=== PATIENT | female | born 1985 | race American Indian/Alaskan Native ===

== ENCOUNTER 2020-05-22 16:19 | Outpatient (CLI) | payer MEDICAID ==
[2020-05-22 17:40] VITALS: BP 105/63
[2020-05-22] MEDS ORDERED: LACTATED RINGERS 1,000 ML IV ONE (17:51)
[2020-05-22 18:09] LABS: Bacteria,Urine 1+ /HPF (Negative); Bilirubin,Urine NEG (Negative); Blood,Urine NEG (Negative); Color,Urine Straw (Yellow); Mucus,Urine FEW /HPF; Protein,Urine <15 mg/dL mg/dL (Negative); Urobilinogen,Urine < 2.0 mg/dL (<2.0); WBC,Urine < 1.0 /HPF (0.0-6.0)
== END 2020-05-22 19:43 | disposition home or self-care (01) ==
LOC: TRG 16:19 → EDBD 16:19 → APU 16:26 → TRG 19:43
PROVIDERS: ATTEND Obstetrics & Gynecology
DX: O09.892 Supervision of other high risk pregnancies, second trimester (principal); Z3A.24 24 weeks gestation of pregnancy
CPT/HCPCS: 59025; 81001

== ENCOUNTER 2020-08-28 13:39 | Outpatient (CLI) | payer MEDICAID ==
[2020-08-28 14:35] VITALS: BP 108/69
== END 2020-08-28 17:55 | disposition home or self-care (01) ==
LOC: EDBD → TRG 13:39 → APU 13:50 → TRG 17:55
PROVIDERS: ATTEND Obstetrics & Gynecology
DX: O09.893 Supervision of other high risk pregnancies, third trimester (principal); Z3A.38 38 weeks gestation of pregnancy
CPT/HCPCS: 36415; 59025; 84112; Q0177

== ENCOUNTER 2020-09-04 20:45 | Inpatient (IN) | payer MEDICAID ==
[2020-09-04] MEDS ORDERED: METHYLERGONOVINE MALEATE 0.2 MG/ML VIAL IM PRN (21:37)
[2020-09-04] MEDS ORDERED: TERBUTALINE 1 MG/1 ML INJ SUB-Q PRN (21:37)
[2020-09-04] MEDS ORDERED: MINERAL OIL 30 ML ORAL LIQD PO PRN (21:37)
[2020-09-04] MEDS ORDERED: ePHEDrine SULFATE 50 MG/1 ML INJ IV PRN (21:37)
[2020-09-04] MEDS ORDERED: LOPERAMIDE 2 MG CAP PO PRN (21:37)
[2020-09-04] MEDS ORDERED: CARBOPROST TROMETHAMINE 250 MCG/1 ML INJ IM PRN (21:37)
[2020-09-04] MEDS ORDERED: LIDOCAINE (2%) 20 MG/1 ML VIAL 20 ML MDV INFILTRATI ONE (21:37)
[2020-09-04] MEDS ORDERED: miSOPROStol 200 MCG TAB PR PRN (21:37)
[2020-09-04] MEDS ORDERED: OXYTOCIN 10 UNIT/1 ML INJ IM PRN (21:37)
[2020-09-04] MEDS ORDERED: LACTATED RINGERS 1,000 ML IV SCH (21:45)
[2020-09-04] MEDS ORDERED: BUTORPHANOL 2 MG/1 ML INJ IV PRN (21:50)
[2020-09-04 21:55] LABS: Hematocrit 36.1 % (30.3-42.9); Hemoglobin 12.1 gm/dl (10.1-14.3); Mean Corpuscular HGB Conc 34 % (30-34); Mean Corpuscular Volume 88 fl (79-97); Platelet Count 164 K/mm3 (140-440); Red Blood Count 4.12 M/mm3 (3.65-5.03)
[2020-09-04] MEDS ORDERED: OXYTOCIN DRIP 30 UNITS/500 ML BAG IV SCH ×2 (22:00)
[2020-09-04] MEDS ORDERED: DINOPROSTONE 10 MG VAG SUPP VG ONE (23:05)
[2020-09-05] MEDS ORDERED: ACETAMINOPHEN 325 MG TAB PO ONE (01:54)
[2020-09-05] MEDS ORDERED: ACETAMINOPHEN 325 MG TAB ONE (07:28)
[2020-09-05] MEDS ORDERED: ACETAMINOPHEN 325 MG TAB PO PRN (07:30)
--- NOTE | 2020-09-05 07:37 | History and Physical Report ---
History of Present Illness Date of examination: 09/05/20 Date of admission: 09/04/20 20:56 Chief complaint: scheduled induction of labor History of present illness: Pt is a 34 year old -[place] female GALE 09/11/20 at 39w1d who presented on 09/04/20 for induction of labor at 39 wks secondary to advanced maternal age. She reports rare contractions and denies vaginal bleeding. Overnight she experienced SROM with meconium stained amniotic fluid. She has had care at [facility] with comanagement by [facility] secondary to advanced maternal age, asthma, h/o hemorrhage in prior , insomnia, left breast lump s/p breast ultrasound at previous practice,and Rheumatoid Arthritis. She is GBS negative. Past History Past Medical History: asthma, other (Rheumatoid Arthritis ) Social history: no significant social history - Obstetrical History Expected Date of Delivery: 09/11/20 Actual Gestation: 39 Week(s) 1 Day(s) : 4 Para: 2 Hx # Term Pregnancies: 2 Number of Pregnancies: 0 Spontaneous Abortions: 1 Induced : 0 Number of Living Children: 2 Medications and Allergies Allergies Allergy/AdvReac Type Severity Reaction Status Date / Time iodine Allergy Severe Anaphylaxis Verified 08/28/20 14:32 Home Medications Medication Instructions Recorded Confirmed Last Taken Type Ferrous Sulfate [Iron 325 MG] 325 mg PO 09/04/20 Unknown History Active Meds: Active Medications Acetaminophen (Acetaminophen 325 Mg Tab) 650 mg PO Q6H PRN PRN Reason: Pain, Mild (1-3) Butorphanol Tartrate (Butorphanol 2 Mg/1 Ml Inj) 2 mg IV Q2H PRN PRN Reason: Labor Pain Last Admin: 09/05/20 04:38 Dose: 2 mg Documented by: Carboprost Tromethamine (Carboprost Tromethamine 250 Mcg/1 Ml Inj) 250 mcg IM ONCE PRN PRN Reason: Uterine Bleeding Ephedrine Sulfate (Ephedrine Sulfate 50 Mg/1 Ml Inj) 10 mg IV Q2M PRN PRN Reason: Hypotension Oxytocin/Sodium Chloride (Pitocin/Ns 30 Unit/500ml) 30 units in 500 mls @ 2 mls/hr IV TITR NIA; Protocol Last Admin: 09/05/20 06:32 Dose: 2 ml/hr, 2 mls/hr Documented by: Lactated Ringer's (Lactated Ringers) 1,000 mls @ 125 mls/hr IV DIRECT NIA Last Admin: 09/05/20 04:54 Dose: 125 mls/hr Documented by: Oxytocin/Sodium Chloride (Pitocin/Ns 30 Unit/500ml) 30 units in 500 mls @ 40 mls/hr IV TITR NIA; Protocol Loperamide HCl (Loperamide 2 Mg Cap) 2 mg PO ONCE PRN PRN Reason: give with Hemabate Methylergonovine Maleate (Methylergonovine Maleate 0.2 Mg/Ml Vial) 0.2 mg IM ONCE PRN PRN Reason: Uterine Bleeding Mineral Oil (Mineral Oil 30 Ml Oral Liqd) 30 ml PO QHS PRN PRN Reason: Constipation Misoprostol (Misoprostol 200 Mcg Tab) 800 mcg IA ONCE PRN PRN Reason: Uterine Bleeding Oxytocin (Oxytocin 10 Unit/1 Ml Inj) 10 unit IM ONCE PRN PRN Reason: Uterine Bleeding Terbutaline Sulfate (Terbutaline 1 Mg/1 Ml Inj) 0.25 mg SUB-Q ONCE PRN PRN Reason: Hyperstimulation/Hypertonicity Review of Systems All systems: negative - Vital Signs Vital signs: Vital Signs Pulse BP 76 108/69 08/28/20 14:28 08/28/20 14:28 Temp Pulse Resp BP Pulse Ox 97.9 F 79 12 95/52 100 09/05/20 06:37 09/05/20 07:28 09/04/20 21:10 09/05/20 07:25 09/05/20 07:28 - Physical Exam Breasts: Positive: deferred Abdomen: Positive: soft (gravid ) Uterus: Positive: enlarged (gravid ) Extremities: Positive: normal - Obstetrical FHR: auscultation normal Uterine Contraction Monitor Mode: External Cervical Dilatation: 3 (per RN ) Uterine Contraction Pattern: Irregular Uterine Tone Measurement Phase: Resting Uterine Contraction Intensity: Moderate Results Result Diagrams: 09/04/20 Unknown All other labs normal. Assessment and Plan A: IUP at 39w1d SROM Meconium stained amniotic fluid Advanced Maternal Age Asthma h/o hemorrhage in prior Insomnia Left breast lump s/p breast ultrasound at previous practice Rheumatoid Arthritis GBS negative P: Admit to labor and delivery Routine intrapartum care Closely monitor maternal and status
[2020-09-05] MEDS ORDERED: LIDOCAINE (2%) 20 MG/1 ML VIAL 20 ML MDV INFILTRATI ONE (07:56)
--- NOTE | 2020-09-05 09:37 | Anesthesia Consultation ---
Anesthesia Consult and Med Hx Date of service: 09/05/20 - Airway Anesthetic Teeth Evaluation: Good ROM Head & Neck: Adequate Mental/Hyoid Distance: Adequate Mallampati Class: Class II Intubation Access Assessment: Probably Good - Pulmonary Exam CTA: Yes - Cardiac Exam Cardiac Exam: RRR - Pre-Operative Health Status ASA Pre-Surgery Classification: ASA3 Proposed Anesthetic Plan: Epidural - Pulmonary Hx Asthma: Yes (last attack 1999) - Cardiovascular System Hx Hypertension: No - Central Nervous System Hx Seizures: No Hx Psychiatric Problems: No - Endocrine Hx Renal Disease: No Hx Hypothyroidism: No Hx Hyperthyroidism: No - Hematic Hx Anemia: No Hx Sickle Cell Disease: No - Other Systems Hx Alcohol Use: No - Additional Comments Anesthesia Medical History Comments: Rheumatoid arthritis
--- NOTE | 2020-09-05 09:53 | Progress Note ---
Labor Epidural - Labor Epidural Start Time: 09:31 Stop Time: 09:45 Performed by:: YULISSA JAMIL Procedure: Patient is requesting epidural for labor pain. H&P, and labs reviewed. Procedure explained, questions answered, consent obtained. Patient in sitting position with blood pressure cuff and pulse ox on and working. Timeout performed immediately before start of procedure. Sterile chlorahexadine 0.5% prep/drape. 3 mL 1% lidocaine skin wheal at L[3]-L[4]. 18-gauge Action Pharmatead epidural needle advanced to [id number] with saline at [7] cm. Epidural catheter advanced to [12] cm, negative aspiration for blood and csf, negative test dose 3 ml 1.5% lidocaine with epinephrine. Epidural dexmedetomidine [30] mcg administered. Sterile steri-strips and tegaderm applied, followed by tape reinforcement. Patient tolerated procedure well. Romero LEAL
[2020-09-05] MEDS ORDERED: ePHEDrine SULFATE 50 MG/1 ML INJ IV PRN (10:00)
[2020-09-05] MEDS ORDERED: fentaNYL-BUPIV 2 MCG/ML-0.125% 200 MCG/100 ML BAG EPIDURAL SCH (10:00)
[2020-09-05] MEDS ORDERED: NALOXONE 2 MG/2 ML INJ IV PRN (10:00)
--- NOTE | 2020-09-05 13:06 | Procedure Note ---
OB Delivery Note - Delivery Date of Delivery: 09/05/20 Surgeon: CASSIE MURILLO - Vaginal Delivery presentation: vertex Delivery position: OA Intrapartum events: PROM->1hr before delivery Delivery induction: cervidil Delivery augmentation: pitocin Delivery monitor: external FHT, external uterine Route of delivery: Delivery placenta: spontaneous (Milton presentation ) Episiotomy: none Delivery laceration: other (Left periurethral repaired with 3-0 Vicryl in a standard fashion ) Delivery repair: vicryl Anesthesia: epidural - A at 1 minute: 8 at 5 minutes: 9 Infant Gender: Female (2930g (6lb 7oz) @ 1243 pm)
[2020-09-05] MEDS ORDERED: ONDANSETRON 4 MG/2 ML INJ IV PRN (17:52)
[2020-09-05] MEDS ORDERED: PROMETHAZINE 25 MG TAB PO PRN (17:52)
[2020-09-05] MEDS ORDERED: BENZOCAINE/MENTHOL 20/0.5% TOP SPRAY 56 GM TP PRN (17:52)
[2020-09-05] MEDS ORDERED: HYDROcodone/ACETAMINOPHEN 5-325 MG TAB PO PRN (17:52)
[2020-09-05] MEDS ORDERED: LANOLIN/ZINC/DIMETHICONE (LANSINOH) 7 GM TP PRN ×2 (17:52)
[2020-09-05] MEDS ORDERED: WITCH HAZEL/ GLYCERIN PAD TP PRN (17:52)
[2020-09-05] MEDS ORDERED: diphenhydrAMINE 25 MG CAP PO PRN (17:52)
[2020-09-05] MEDS ORDERED: MAGNESIUM HYDROXIDE (MOM) ORAL LIQD UDC PO PRN (17:52)
[2020-09-05] MEDS ORDERED: PROMETHAZINE 25 MG RECT SUPP PR PRN (17:52)
[2020-09-05] MEDS: IBUPROFEN 600 MG TAB PO SCH ×2 (18:27→23:18)
[2020-09-05] MEDS: FERROUS SULFATE 325 MG TAB PO SCH (23:18)
[2020-09-06 01:12] LABS: Hematocrit 33.4 % (30.3-42.9); Hemoglobin 11.2 gm/dl (10.1-14.3)
[2020-09-06] MEDS: IBUPROFEN 600 MG TAB PO SCH ×2 (05:16→12:03)
[2020-09-06] MEDS ORDERED: MEASLES, MUMPS & RUBELLA 12,500 UNIT/0.5 ML VACCINE SUB-Q ONE (06:00)
[2020-09-06] MEDS ORDERED: TETANUS,DIPH,PERTUSS(ACELL) VACCINE 0.5 ML SYRINGE IM ONE (06:00)
--- NOTE | 2020-09-06 08:26 | Progress Note ---
Assessment and Plan - Patient Problems (1) Status post normal vaginal delivery Current Visit: Yes Status: Acute Plan to address problem: Continue routine PP orders Anticipate d/c home tomorrow Subjective - Subjective Date of service: 09/06/20 Principal diagnosis: S/P ; PPD #1 Interval history: Pt is a 34 year old -[place]yp[place] female GALE 09/11/20 at 39w1d who presented on 09/04/20 for induction of labor at 39 wks secondary to advanced maternal age. She reports rare contractions and denies vaginal bleeding. Overnight she experienced SROM with meconium stained amniotic fluid. She has had care at [facility] with comanagement by [facility] secondary to advanced maternal age, asthma, h/o hemorrhage in prior , insomnia, left breast lump s/p breast ultrasound at previous practice,and Rheumatoid Arthritis. She is GBS negative. Patient reports: appetite normal, voiding normally, pain well controlled, flatus, ambulating normally : doing well, nursing well, bottle feeding Objective - Vital Signs Latest vital signs: Vital Signs Temp Pulse Resp BP BP Pulse Ox 09/05/20 23:44 97.6 F 79 16 97/64 97 09/05/20 20:09 98.4 F 85 16 104/67 97 09/05/20 16:01 97.6 F 83 18 93/65 99 09/05/20 14:40 97.5 F L 66 16 108/69 100 09/05/20 14:36 97.5 F L 66 16 108/69 100 09/05/20 14:08 80 98 09/05/20 14:05 70 94/57 09/05/20 14:03 67 98 09/05/20 13:58 74 99 09/05/20 13:53 83 100 09/05/20 13:50 85 89/70 09/05/20 13:48 90 99 09/05/20 13:43 73 100 09/05/20 13:39 73 84 09/05/20 13:38 69 99 09/05/20 13:34 73 104/70 09/05/20 13:33 71 99 09/05/20 13:28 73 100 09/05/20 13:23 72 98 09/05/20 13:19 77 104/67 09/05/20 13:18 70 99 09/05/20 13:13 81 99 09/05/20 13:08 87 98 09/05/20 13:05 90 104/64 09/05/20 13:03 88 99 09/05/20 13:01 81 112/65 09/05/20 12:58 86 99 09/05/20 12:53 78 99 09/05/20 12:48 75 100 09/05/20 12:43 94 H 100 09/05/20 12:38 73 100 09/05/20 12:33 89 98 09/05/20 12:31 99 H 100/57 09/05/20 12:28 77 98 09/05/20 12:23 79 96 09/05/20 12:18 84 96 09/05/20 12:17 86 94 09/05/20 12:13 75 95 09/05/20 12:08 76 96 09/05/20 12:03 87 96 09/05/20 12:01 81 100/58 09/05/20 11:58 80 96 09/05/20 11:53 81 95 09/05/20 11:48 91 H 95 09/05/20 11:43 78 96 09/05/20 11:38 79 96 09/05/20 11:33 82 96 09/05/20 11:31 81 99/54 09/05/20 11:28 79 96 09/05/20 11:23 83 96 09/05/20 11:18 83 97 09/05/20 11:13 86 96 09/05/20 11:08 81 99 09/05/20 11:03 88 97 09/05/20 11:02 80 103/55 09/05/20 10:58 79 98 09/05/20 10:53 78 98 09/05/20 10:48 89 99 09/05/20 10:43 84 99 09/05/20 10:38 90 99 09/05/20 10:33 83 99 09/05/20 10:30 82 93 09/05/20 10:28 90 99 09/05/20 10:23 79 100/58 97 09/05/20 10:18 80 104/58 91 09/05/20 10:13 80 102/61 99 09/05/20 10:12 83 94 09/05/20 10:09 80 101/57 09/05/20 10:08 69 98 06/29/21 10:03 87 109/71 96 09/05/20 09:59 87 144/92 09/05/20 09:58 82 99 09/05/20 09:56 92 H 118/84 09/05/20 09:53 81 97 09/05/20 09:49 88 120/85 09/05/20 09:48 96 H 100 09/05/20 09:44 96 H 124/78 09/05/20 09:43 97 H 98 09/05/20 09:39 96 H 123/74 09/05/20 09:38 96 H 142/92 100 09/05/20 09:33 100 H 100 09/05/20 09:30 98 H 141/83 09/05/20 09:28 95 H 100 09/05/20 09:23 91 H 100 09/05/20 09:18 84 98 09/05/20 09:13 81 97 09/05/20 09:08 81 98 09/05/20 09:03 84 99 09/05/20 09:02 86 92 09/05/20 09:01 74 109/72 09/05/20 08:58 82 99 09/05/20 08:53 77 98 09/05/20 08:52 73 93 09/05/20 08:48 73 97 09/05/20 08:44 72 93 09/05/20 08:43 78 99 09/05/20 08:38 85 98 09/05/20 08:37 82 93 09/05/20 08:33 79 99 09/05/20 08:28 75 94/54 98 Intake and Output 09/05/20 09/06/20 09/06/20 23:59 07:59 15:59 Intake Total 760 Output Total 1200 Balance -440 Intake: Oral 760 Output: Urine 1200 Void 1200 Other: Total, Intake Amount 200 Total, Output Amount 400 - Exam Breasts: Present: normal Cardiovascular: Present: Regular rate Lungs: Present: Normal air movement Abdomen: Present: soft Uterus: Present: firm, fundal height below umbilicus (U-3) Extremities: Present: normal Deep Tendon Reflex Grade: Normal +2 Incision: Present: other (Lt periurethral laceration, healing as expected)
--- NOTE | 2020-09-06 08:30 | Discharge Summary ---
Providers - Providers Date of Admission: 09/04/20 20:56 Date of discharge: 09/07/20 Attending physician: CASSIE MURILLO 09/05/20 17:52 Consult to Primary Education Professor [CONS] Routine Reason For Exam: assistance with , SNS Primary care physician: CASSIE MURILLO Hospitalization Reason for admission: induction of labor Delivery: Episiotomy: none Laceration: other (Lt periurethral, healing as expected) Other procedures: none complications: none Discharge diagnosis: IUP at term delivered [place] baby: female Hospital course: Pt is a 34 year old -[place] female GALE 09/11/20 at 39w1d who presented on 09/04/20 for induction of labor at 39 wks secondary to advanced maternal age. She reports rare contractions and denies vaginal bleeding. Overnight she experienced SROM with meconium stained amniotic fluid. She has had care at [facility] with comanagement by [facility] secondary to advanced maternal age, asthma, h/o hemorrhage in prior , insomnia, left breast lump s/p breast ultrasound at previous practice,and Rheumatoid Arthritis. She is GBS negative. Condition at discharge: Good Disposition: DC-01 TO HOME OR SELFCARE - Discharge Diagnoses (1) Status post normal vaginal delivery Status: Acute Plan - Discharge Medications Prescriptions: Ibuprofen [Motrin 600 MG tab] 600 mg PO Q8H 7 Days #21 tablet - Provider Discharge Summary Activity: routine, no sex for 6 weeks, no heavy lifting 4 weeks, no strenuous exercise Diet: other (Iron rich diet) Instructions: routine Additional instructions: [] Smoking cessation referral if applicable(refer to patient education folder for contact #) [] Refer to [facility] Booklet Call your doctor immediately for: * Fever > 100.5 * Heavy vaginal bleeding ( >1 pad per hour) * Severe persistent headache * Shortness of breath * Reddened, hot, painful area to leg or breast * Drainage or odor from incision. * Keep laceration site clean and dry at all times and follow doctor's instructions regarding bathing/showering - Follow up plan Follow up: CASSIE MURILLO MD [Primary Care Provider] - 6 Weeks
[2020-09-06] MEDS: FERROUS SULFATE 325 MG TAB PO SCH (09:57)
[2020-09-06 16:48] VITALS: BP 106/55
--- NOTE | 2020-09-06 20:46 | Post Anesthesia Evaluation ---
- Post Anesthesia Evaluation Patient Participated: Yes Airway Patent: Yes Stable Respiratory Function: Yes Nausea/Vomiting: No Temp > 96.8F: Yes Pain Manageable: Yes Adequeate Hydration: Yes Anesthesia Complications: No Block Receding Appropriately: Yes
== END 2020-09-06 20:00 | disposition home or self-care (01) | DRG 775 ==
LOC: TRG 20:45 → LD 20:56 → OB 09-05 15:02
PROVIDERS: ADMIT Obstetrics & Gynecology; ATTEND Obstetrics & Gynecology
PROC: 10E0XZZ Delivery of Products of Conception, External Approach (ICD-10-PCS; principal; 2020-09-05)
PROC: 3E0P7VZ Introduction of Hormone into Female Reproductive, Via Natural or Artificial Opening (ICD-10-PCS; 2020-09-05)
PROC: 3E0R3BZ Introduction of Anesthetic Agent into Spinal Canal, Percutaneous Approach (ICD-10-PCS; 2020-09-05)
PROC: 00HU33Z Insertion of Infusion Device into Spinal Canal, Percutaneous Approach (ICD-10-PCS; 2020-09-05)
PROC: 0UQMXZZ Repair Vulva, External Approach (ICD-10-PCS; 2020-09-05)
PROC: 3E0234Z Introduction of Serum, Toxoid and Vaccine into Muscle, Percutaneous Approach (ICD-10-PCS; 2020-09-06)
PROC: 3E0134Z Introduction of Serum, Toxoid and Vaccine into Subcutaneous Tissue, Percutaneous Approach (ICD-10-PCS; 2020-09-06)
DX: O42.92 Full-term premature rupture of membranes, unspecified as to length of time between rupture and onset of labor (principal); O99.52 Diseases of the respiratory system complicating childbirth; J45.909 Unspecified asthma, uncomplicated; Z20.822 Contact with and (suspected) exposure to COVID-19; O77.0 Labor and delivery complicated by meconium in amniotic fluid; O75.89 Other specified complications of labor and delivery; M06.80 Other specified rheumatoid arthritis, unspecified site; O71.82 Other specified trauma to perineum and vulva; Z3A.39 39 weeks gestation of pregnancy; Z37.0 Single live birth; Z23 Encounter for immunization; Z91.041 Radiographic dye allergy status; Z79.899 Other long term (current) drug therapy
CPT/HCPCS: 36415; 59200; 85014; 85018; 85027; 86592; 86850; 86900; 86901; 96360; 96361; G0378; A6250; J0595; J2590; J7120; U0003